=== PATIENT | female | born 1950 | race Hispanic/Latino ===

== ENCOUNTER → 2018-11-26 | Outpatient (CLI) | payer OTHER ==
[~2018-11-26] MED LIST: ALEN70TA10 PO; ASPI-1197 PO; CA C-5 PO; CHOL100040 PO; CYAN500 PO; ESOM40CA54 PO; LEVO50TA11 PO; METO50TA18 PO; ROSU5TAB11 PO; SUCR1ORA3 PO; VALS1TAB73 PO; [UNRECOGNIZED DRUG - OTHER] PO
== END | disposition home or self-care (01) ==
LOC: SHCH 10:16
PROVIDERS: ATTEND Internal Medicine Cardiovascular Disease
DX: I71.4 Abdominal aortic aneurysm, without rupture (principal)
CPT/HCPCS: 93978